=== PATIENT | male | born 1945 | race Caucasian/White ===

== ENCOUNTER 2019-11-17 21:52 | Inpatient (IN) | payer OTHER ==
[~2019-11-17 21:52] MED LIST: Iopamidol 370 76% 100 ML VIAL ONE
[2019-11-17] MEDS ORDERED: Propofol 1,000 MG/100 ML VIAL IV ONE (21:58)
[2019-11-17 22:24] LABS: Actual Bicarbonate (HCO3a) 26.4 mEq/L (22-28); Analyzer IN Cardio ER; Base Excess (BEa) -0.2 mEq/L (-2.0 to +3.0); CO2 Tension 50.2 mmHg (35.0-45.0); Calcium, Ionized (arterial) 1.06 mmol/L (1.12-1.30); Carboxyhemoglobin (COHb) 0.5 gm% (0.0-3.0); Hemoglobin (Hb) 15.4 g/dL (14.0-18.0); O2 Tension (PaO2), arterial 61.8 mmHg (> 70.0); Potassium - ABG Lab 3.41 mmol/L (3.70-5.30); pH, Arterial 7.34 (7.35-7.45)
[2019-11-17 22:26] LABS: Puncture Site LRA
[2019-11-17] MEDS ORDERED: Vancomycin 1 GM/200 ML BAG ONE (22:30)
[2019-11-17] MEDS ORDERED: Magnesium 2 GM/50 ML BAG (IN WATER) ONE (22:30)
[2019-11-17] MEDS ORDERED: Dexamethasone 10 MG/ML VIAL ONE (22:30)
[2019-11-17 22:42] LABS: Bilirubin Negative (Negative); Blood, Urine 1+ (Negative); Clarity Clear (Clear); Glucose, Urine (Dipstick) Normal (Negative); Leukocyte Negative Leu/uL (Negative); Nitrite Negative (Negative); Protein, Urine (Dipstick) 100 mg/dL (Neg-Trace); RBC/HPF 0-3 HPF (0-3); Squamous Epithelial 0-3 HPF (0-3); Urobilinogen Normal mg/dL (Less than 2)
[2019-11-17 22:49] LABS: Bacteria/HPF Rare-Few HPF (None Seen); Mucous/LPF 1+ LPF (<2+)
[2019-11-17 22:59] LABS: #Lymphocytes 0.7 thou/uL (1.20-3.40); #Neutrophils 9.8 thou/uL (1.40-6.50); %Eosinophils 0.3 % (0.0-10.0); %Lymphocytes 6.3 % (21.0-51.0); %Monocytes 8.8 % (0.0-10.0); %Neutrophils 84.6 % (42.0-75.0); Hemoglobin 14.5 g/dL (14.0-18.0); Mean Corpuscular HGB CONC 32.2 g/dL (32.0-36.0); Mean Corpuscular Hemoglobin 27.7 pg (27.0-31.0); Mean Corpuscular Volume 85.8 fL (78.0-98.0); Mean Platelet Volume 9.9 fL (7.4-10.4); Platelet Count 159 thou/uL (130-400); RBC Distribution Width 13.9 % (11.5-14.5); Red Blood Cell (RBC) Count 5.25 mill/uL (4.70-6.10); White Blood Cell (WBC) Count 11.6 thou/uL (4.8-10.8)
--- NOTE | 2019-11-17 23:13 | PDOC.HHP ---
Hospitalist HPI - History of Present Illness Respiratory failure/possible COVID19 History of Present Illness: Patient with PMH of HTN, HLD, DM, CHF, COPD from [facility] presents for evaluation of respiratory failure. At time of my assessment patient is intubated and sedated, unable to provide any history. Per discussion with ED provider patient was intubated prior to ED arrival by EMT due to respiratory distress. It it documented that patient had been having symptoms concerning for COVID19 x 2 weeks including SOB and fever with high risk exposure due to being incarcerated. Initial ED evaluation reveals intubated male with CT scan suggestive of bilateral infiltrates concerning for PNA/possible COVID19. Hospitalist ROS - Review of Systems ROS unobtainable: due to endotracheal tube - Exam General - other findings: Intubated/sedated Neck: supple, no JVD Heart: RRR, no murmur Respiratory: normal chest expansion Respiratory - other findings: Bilateral diffuse rhonchi, decreased bs at bases Gastrointestinal: soft, non-distended Extremities: no cyanosis, no clubbing, no edema Neurological - other findings: Sedated Psychiatric - other findings: Sedated Hospitalist Results - Labs Result Diagrams: 11/17/19 22:45 11/17/19 23:18 Lab results: WBC 11.6 thou/uL (4.8-10.8) H 11/17/19 22:45 Hgb 14.5 g/dL (14.0-18.0) 11/17/19 22:45 Hct 45.1 % (42.0-52.0) 11/17/19 22:45 MCV 85.8 fL (78.0-98.0) 11/17/19 22:45 Plt Count 159 thou/uL (130-400) 11/17/19 22:45 Neutrophils % 84.6 % (42.0-75.0) H 11/17/19 22:45 ABG pH 7.34 (7.35-7.45) L 11/17/19 22:20 ABG pCO2 50.2 mmHg (35.0-45.0) H 11/17/19 22:20 ABG pO2 61.8 mmHg (> 70.0) 11/17/19 22:20 Urine Ketones 40 mg/dL (Negative) A 11/17/19 22:27 Urine Blood 1+ (Negative) A 11/17/19 22:27 Urine Nitrite Negative (Negative) 11/17/19 22:27 Ur Leukocyte Esterase Negative Jess/uL (Negative) 11/17/19 22:27 Urine RBC 0-3 HPF (0-3) 11/17/19 22:27 Urine WBC 4-6 HPF (0-3) A 11/17/19 22:27 Ur Squamous Epith Cells 0-3 HPF (0-3) 11/17/19 22:27 Urine Bacteria Rare-Few HPF (None Seen) 11/17/19 22:27 - Radiology Interpretation CT scan - chest Status: image reviewed by ri Hospitalist H&P A/P - Plan Plan: Problem List 1. Hypoxic respiratory failure requiring mechanical ventilation 2. Multifocal pneumonia likely due to COVID19 3. COPD exacerbation 4. Sepsis 5. History of CHF 6. History of HTN 7. History of DM 8. History of DLD 9. Seizure disorder Assessment and Plan 1. Hypoxic respiratory failure requiring mechanical ventilation - admit to ICU for closer monitoring - continue with sedation & mechanical ventilation - repeat ABG in AM and chest imaging PRN - pulmonary cc has been consulted 2. Multifocal pneumonia likely due to COVID19 - per EHR recently tested negative - will repeat test given progressive decompensation - start broad spectrum ABX - consider remdesivir if COVID19 positive - ID has been consulted for further advice 3. COPD exacerbation - continue with IV steroids and broad spectrum ABX - pulmonary cc has been consulted 4. Sepsis - in setting of PNA possibly COVID19 related 5. History of CHF - hold diuretics for now - daily weight, strict I&Os 6. History of HTN - hold antihypertensives and diuretics for now due to risk of decompensation 7. History of DM - hold oral hypoglycemics - start ISS per protocol 8. History of DLD - hold statin for now 9. Seizure disorder - unclear if history of seizures bur carbamazepine listed as home med - will reassess once medications investigated by pharmacy in AM DVT PPX: Lovenox FULL CODE
--- NOTE | 2019-11-17 23:25 | RAD ---
EXAM: CHEST ONE VIEW HISTORY: Dyspnea. COMPARISON: None FINDINGS: Patient is rotated to the right. Cardiac silhouette does appear to be within normal limits. There is increased density overlying the right hilar region which could be related to patient rotation, but overlying infiltrate/pneumonia is a possibility. There is mild increased interstitial densities also seen bilaterally. No pleural fluid is appreciated. Degenerative changes are seen in the spine. IMPRESSION: Increased density overlying the right hilar region which could be related to superimposition of struc tures and secondary to patient rotation, but pneumonia is a possibility. This also mild prominence of the interstitial markings. Follow-up PA and lateral chest x-ray is recommended.
[2019-11-17] MEDS ORDERED: Aspirin Chewable 81 MG TAB ONE (23:31)
[2019-11-17 23:37] LABS: CKMB 0.5 ng/mL (0-6.6)
[2019-11-17 23:49] LABS: ALT (SGPT) 12 U/L (8-55); AST (SGOT) 26 U/L (5-34); Albumin 3.3 g/dL (3.4-4.8); Alkaline Phosphatase 57 U/L (40-110); Anion Gap 17 mmol/L (10-20); BUN (Urea Nitrogen) 12 mg/dL (8.4-25.7); Bilirubin, Total 0.6 mg/dL (0.2-1.2); CK (CPK) 100 U/L (30-200); Calc. Creatinine Clearance 0 mL/min (70-130); Calcium 7.8 mg/dL (7.8-10.44); Carbon Dioxide 22 mmol/L (23-31); Chloride 97 mmol/L (98-107); Estimated GFR-MDRD 90; Globulin 3.2 g/dL (2.4-3.5); Glucose 127 mg/dL (83-110); Lipase 26 U/L (8-78); Potassium 3.4 mmol/L (3.5-5.1); Protein, Total 6.5 g/dL (5.8-8.1); Sodium 133 mmol/L (136-145)
[2019-11-18] MEDS ORDERED: Propofol 1,000 MG/100 ML VIAL IV ONE (00:14)
[2019-11-18] MEDS ORDERED: Propofol BOLUS 1,000 MG/100 ML VIAL IV PRN (00:46)
[2019-11-18] MEDS ORDERED: Fentanyl BOLUS 250 ML IVPB PRN (00:46)
[2019-11-18] MEDS ORDERED: DISCONTINUE PREVIOUS NARCOTIC PAIN MEDICATIONS AND BENZODIAZEPINES FS SCH (00:46)
[2019-11-18] MEDS ORDERED: Ondansetron ODT 4 MG TAB SL PRN (00:47)
[2019-11-18] MEDS ORDERED: Ondansetron PF 4 MG/2 ML Vial IVP PRN ×2 (00:47→00:48)
[2019-11-18] MEDS ORDERED: Sodium Chloride 0.9% 1,000 ML IV SCH (00:47)
[2019-11-18] MEDS: fentaNYL Citrate/PF 2,000 MCG in Sodium Chloride 0.9% 60 ML IV SCH ×2 (01:27→21:54)
[2019-11-18] MEDS ORDERED: Dextrose 5% in Water 1,000 ML IV PRN (02:50)
[2019-11-18] MEDS ORDERED: Dextrose 50% Abboject 50 ML SYRINGE SLOW IVP PRN (02:50)
[2019-11-18] MEDS: Propofol 1,000 MG/100 ML VIAL IV PRN ×4 (03:41→21:46)
[2019-11-18 04:14] LABS: Band 14 % (5-11); Hemoglobin 15.7 g/dL (14.0-18.0); Lymphocytes 6 % (21-51); MDiff Complete? YES; Mean Corpuscular HGB CONC 32.6 g/dL (32.0-36.0); Mean Corpuscular Hemoglobin 28.5 pg (27.0-31.0); Mean Corpuscular Volume 87.3 fL (78.0-98.0); Mean Platelet Volume 9.3 fL (7.4-10.4); Metamyelocyte 1 % (0-0); Monocytes 10 % (0-10); Neutrophil 69 % (42-75); Platelet Count 136 thou/uL (130-400); Platelet Morphology Comment Appears Adequate; RBC Distribution Width 14.1 % (11.5-14.5); RBC Morphology Normal; Red Blood Cell (RBC) Count 5.52 mill/uL (4.70-6.10); White Blood Cell (WBC) Count 14.2 thou/uL (4.8-10.8)
[2019-11-18 04:17] LABS: ALT (SGPT) 13 U/L (8-55); AST (SGOT) 27 U/L (5-34); Albumin 3.4 g/dL (3.4-4.8); Alkaline Phosphatase 59 U/L (40-110); Anion Gap 17 mmol/L (10-20); BUN (Urea Nitrogen) 13 mg/dL (8.4-25.7); Bilirubin, Total 0.7 mg/dL (0.2-1.2); Calc. Creatinine Clearance 102 mL/min (70-130); Carbon Dioxide 22 mmol/L (23-31); Chloride 96 mmol/L (98-107); Estimated GFR-MDRD 75; Globulin 3.6 g/dL (2.4-3.5); Glucose 148 mg/dL (83-110); Sodium 131 mmol/L (136-145)
[2019-11-18] MEDS ORDERED: Piperacillin/Tazobactam 4.5 GM in Sodium Chloride 0.9% 100 ML IVPB SCH (06:00)
[2019-11-18] MEDS: methylPREDNISolone Sod Succ 40 MG VIAL IVP SCH ×3 (07:01→21:47)
[2019-11-18 07:12] LABS: Actual Bicarbonate (HCO3a) 24.6 mEq/L (22-28); Base Excess (BEa) 0.5 mEq/L (-2.0 to +3.0); CO2 Tension 37.8 mmHg (35.0-45.0); Calcium, Ionized (arterial) 1.07 mmol/L (1.12-1.30); Carboxyhemoglobin (COHb) 0.7 gm% (0.0-3.0); Hemoglobin (Hb) 13.7 g/dL (14.0-18.0); Potassium - ABG Lab 3.65 mmol/L (3.70-5.30); pH, Arterial 7.43 (7.35-7.45)
[2019-11-18 07:17] LABS: O2 Tension (PaO2), arterial 45.9 mmHg (> 70.0); Puncture Site RRA
--- NOTE | 2019-11-18 07:34 | CT ---
PRELIMINARY REPORT/[facility]/EMERGENCY AFTER HOURS PROCEDURE EXAM: CTA Chest with Intravenous Contrast CLINICAL HISTORY: Pt has had SOB and cough for an estimated 2 weeks per EMS. 2 weeks ago pt was swabbed for COVID and w as negative. Pt became increasingly SOB tonight, and was febrile at the PAC unit TECHNIQUE: Axial CTA images of the chest with intravenous contrast. Three-dimensional MIP/volume rendered reform ations were performed. CONTRAST: With; ISOVUE 370, 90ML COMPARISON: None provided. FINDINGS: PULMONARY ARTERIES There is no intraluminal filling defect suspicious for PE. AORTA No thoracic aortic aneurysm or dissection. Atherosclerosis. LUNGS An endotracheal tube is in place. Patchy groundglass densities throughout the lungs, worse in the nelida ng periphery. There is confluent sublobar consolidation in the bilateral lower lobes. PLEURAL SPACES No pleural effusion. No pneumothorax. HEART AND MEDIASTINUM Mild cardiomegaly. No significant pericardial effusion. The tip of the nasogastric tube is in the st omach. LYMPH NODES Prominent prevascular, subcarinal, paratracheal lymph nodes measuring up to 1.1 cm in short axis. BONES No focal osseous abnormality or acute fracture. Multilevel degenerative disc disease. CHEST WALL AND UPPER ABDOMEN Hepatomegaly. The other upper abdomen are unremarkable. The chest wall is unremarkable. IMPRESSION: Patchy groundglass densities throughout the lungs, worse in the lung periphery with confluent subloba r consolidation in the bilateral lower lobes. These findings are concerning for an infectious process and may represent a COVID-19 infection in the appropriate clinical setting. Mild cardiomegaly. Nonspecific mild mediastinal lymphadenopathy. ELECTRONICALLY SIGNED BY: Quique Kearns MD Nov 18, 2019 12:51:12 AM CDT This report is intended for review by the ordering physician only, in accordance of law. If you recei ve this report in error, please call [facility] at [phone]. FINAL REPORT Exam: CT angiogram of the chest HISTORY: Cough. Shortness of breath. COMPARISON: None TECHNIQUE: CT angiogram of the chest is performed in the axial plane. Three-dimensional reformatted i mages are submitted for interpretation FINDINGS: Mediastinum: No mass, lymphadenopathy or hematoma. Upper normal prevascular lymph nodes are identifie d. HEART: Normal size. No significant pericardial fluid. Aorta: No aneurysm or dissection Upper solid abdominal viscera: No abnormality enhancement. Trachea and central bronchi: Patent Pleural spaces: No effusion Lung parenchyma: Bibasilar consolidation may represent atelectasis, pneumonia or aspiration. Addition al patchy groundglass opacities are noted and have a predominantly peripheral distribution. Correlate for atypical infection. Patient was reported to be COVID-negative 2 weeks ago. Pneumothorax: None Osseous structures: No lytic or blastic lesions Pulmonary arteries: Limited evaluation pulmonary nodules system due to timing of contrast bolus and p atient motion. Adequate contrast opacification of the pulmonary arterial system to the level of the lobar arteries. No filling defect to suggest pulmonary embolism IMPRESSION: 1. This report is in agreement with initial report by [facility]. 2. Lung parenchymal opacifications as described above. Possibility of atypical infection, including C OVID, cannot be excluded. Patient was reported to be COVID-negative 2 weeks ago. Consider repeat testing. 3. No evidence of pulmonary artery embolism to the level of the lobar arteries. Transcribed Date/Time: 11/18/2019 8:29 AM
[2019-11-18] MEDS ORDERED: Azithromycin 500 MG in Sodium Chloride 0.9% 250 ML 250 ML IVPB SCH (09:00)
[2019-11-18] MEDS ORDERED: Vancomycin 1.5 GRAM/300 ML BAG 1.5 GM in Premix Bag 1 BAG IVPB SCH (09:00)
[2019-11-18] MEDS ORDERED: Enoxaparin Sodium 40 MG/0.4 ML SYRINGE SC SCH (09:00)
[2019-11-18] MEDS ORDERED: Famotidine/PF 20 mg/2ml Vial SLOW IVP SCH (09:00)
[2019-11-18] MEDS: Cefepime 1 GM in Sodium Chloride 0.9% 100 ML IVPB SCH ×2 (09:14→21:46)
[2019-11-18] MEDS: Enoxaparin Sodium 40 MG/0.4 ML SYRINGE SC SCH ×2 (09:14→21:47)
[2019-11-18] MEDS: Azithromycin 500 MG in Sodium Chloride 0.9% 250 ML 250 ML IVPB SCH (09:18)
--- NOTE | 2019-11-18 15:31 | CON ---
DATE OF CONSULTATION: 11/18/2019 HISTORY OF PRESENT ILLNESS: Ramin Matias is a 73-year-old gentleman, who was intubated from the correction system with respiratory distress. History is entirely obtained from his medical records since he is in the ICU, intubated, vented, sedated, and paralyzed. He has a diagnosis of COPD, apparently had respiratory distress, for which he was intubated. Several days prior to that, he had a coronavirus test done, which was negative, but his x-ray does show diffuse pulmonary infiltrates. PAST MEDICAL HISTORY: Pertinent for hypertension, COPD, congestive heart failure, and diabetes. HOME MEDICATIONS: Include: 1. Amlodipine 5. 2. Aspirin 81. 3. Lasix 40 b.i.d. 4. Lisinopril 20. 5. Metformin 1000. 6. Metoprolol 25. 7. Omeprazole. 8. Potassium. 9. Atorvastatin 10. 10. Carbamazepine 200 mg. 11. Terazosin 2. 12. ProAir. PREVIOUS SURGERIES: From the correction system, no records to assess. We will try and get additional medical records. PROBLEM LIST: Includes hypertension, COPD, hearing loss, heart failure, and diabetes. ALLERGIES: HE MAY BE ALLERGIC TO MORPHINE. PHYSICAL EXAMINATION: GENERAL: He is intubated on the vent, sedated as noted. VITAL SIGNS: Pulse 71, sats 90%, 60% FiO2, temperature 100.9, and respiratory rate 18. CHEST: Bilateral rhonchi and crackles. CARDIAC: Normal S1, S2. No gallops. ABDOMEN: Soft. LABORATORY DATA: White count 14,000, H and H 15 and 48, platelet count 136. PO2 is 45, pCO2 37, pH 7.43, 60%, BNP 20, sodium 131. ASSESSMENT: 1. Abnormal chest x-ray; respiratory failure; rule out coronavirus pneumonia, baseline. 2. Chronic obstructive pulmonary disease. 3. Congestive heart failure. 4. Hypertension. 5. Diabetes. PLAN: Continue vent support. Await additional information. If he is positive for the virus, he will receive plasma and Remdesivir including steroids. CRITICAL CARE TIME: 45 minutes. Job ID: [id number]
[2019-11-18] MEDS: Sodium Chloride 0.9% 1,000 ML IV SCH (17:16)
--- NOTE | 2019-11-18 17:53 | PDOC.HOSPP ---
- Subjective Encounter Date: 11/18/19 Encounter Time: 17:51 Subjective: pt intubated - Objective Vital Signs & Weight: Vital Signs (12 hours) Pulse Resp Pulse Ox 11/18/19 16:00 16 11/18/19 14:50 58 L 11/18/19 14:00 16 11/18/19 12:40 59 L 11/18/19 12:00 16 11/18/19 10:06 65 11/18/19 10:00 16 11/18/19 08:00 16 11/18/19 07:55 89 L 11/18/19 07:19 70 11/18/19 06:00 18 Weight Admit Weight 242 lb Weight 242 lb 8.136 oz Most Recent Monitor Data Heart Rate from ECG 65 NIBP 107/67 NIBP BP-Mean 80 Respiration from ECG 19 SpO2 94 I&O: 11/17/19 11/18/19 11/19/19 06:59 06:59 06:59 Intake Total 658 1207 Output Total 510 600 Balance 148 607 Result Diagrams: 11/18/19 03:39 11/18/19 03:39 Additional Labs: Accuchecks 11/18/19 11/18/19 16:16 12:02 POC Glucose 163 H 165 H Hospitalist ROS - Review of Systems Other: unable to obtain - Medication Medications: Active Medications Generic Name Dose Route Start Last Admin Trade Name Freq PRN Reason Stop Dose Admin Albuterol/Ipratropium 3 ml 11/18/19 13:00 11/18/19 12:46 Duoneb NEB 3 ml [id number] EDDIE Administration Enoxaparin Sodium 40 mg 11/18/19 09:00 11/18/19 09:14 Lovenox SC 40 mg BID EDDIE Administration Fentanyl Citrate 2,000 mcg/ 100 mls @ 0 mls/hr 11/18/19 00:46 11/18/19 01:27 Sodium Chloride IV 12/18/19 00:46 100 mls INF EDDIE Administration Protocol Per Protocol Cefepime HCl 1 gm/ Sodium 100 mls @ 200 mls/hr 11/18/19 09:00 11/18/19 09:14 Chloride IVPB 100 mls 0900,2100 EDDIE Administration Azithromycin 500 mg/ Sodium 250 mls @ 250 mls/hr 11/18/19 10:00 11/18/19 09: 18 Chloride IVPB 250 mls 1000 EDDIE Administration Sodium Chloride 1,000 mls @ 100 mls/hr 11/18/19 15:45 11/18/19 17:16 Normal Saline 0.9% IV 1,000 mls .Q10H EDDIE Administration Methylprednisolone Sodium Succinate 40 mg 11/18/19 06:00 11/18/19 13:38 Solu-Medrol IVP 40 mg Q8HR EDDIE Administration Propofol 1,000 mg 11/18/19 00:46 11/18/19 13:38 Diprivan IV 12/18/19 00:46 1,000 mg INF PRN Administration TO ACHIEVE GOAL RASS Protocol Sodium Chloride 10 ml 11/18/19 09:00 11/18/19 09:14 Flush - Normal Saline IVF 10 ml Q12HR EDDIE Administration - Exam Neck: negative: supple, symmetric, no JVD, no thyromegaly, no lymphadenopathy, no carotid bruit, JVD Heart: irregular Respiratory: negative: CTAB, no wheezes, no rales, no ronchi, normal chest expansion, no tachypnea, normal percussion, rales, rhonchi, tachypneic, wheezes Gastrointestinal: negative: soft, non-tender, non-distended, normal bowel sounds , no palpable masses, no hepatomegaly, no splenomegaly, no bruit, no guarding, no rigidity, tender to palpation, distended, diminished bowl sounds, voluntary guarding Hosp A/P (1) Acute respiratory failure Code(s): J96.00 - ACUTE RESPIRATORY FAILURE, UNSP W HYPOXIA OR HYPERCAPNIA Status: Acute (2) Pneumonia Code(s): J18.9 - PNEUMONIA, UNSPECIFIED ORGANISM Status: Acute (3) Afib Code(s): I48.91 - UNSPECIFIED ATRIAL FIBRILLATION Status: Acute (4) HTN (hypertension) Code(s): I10 - ESSENTIAL (PRIMARY) HYPERTENSION Status: Acute - Plan unclear why pt takes carbamazepine. pt now is afib rate controlled and is on lovenox. covid pending. will continue abx. pt sedated and intubated. He is on steroids. will order echo.
[2019-11-18] MEDS ORDERED: Digoxin 0.5 MG/2 ML AMP SLOW IVP SCH (20:00)
[2019-11-18] MEDS ORDERED: Prevnar 13-Val Conj/PF 0.5 ML SYRINGE IM ONE (21:00)
[2019-11-18] MEDS: Atorvastatin Calcium 10 MG TAB PO SCH (21:50)
--- NOTE | 2019-11-19 00:43 | CON ---
DATE OF CONSULTATION: 11/18/2019 REASON FOR CONSULTATION: Possible COVID. HISTORY OF PRESENT ILLNESS: A 73-year-old with history of COPD, hypertension, CHF, and type 2 diabetes, who is an inmate at [facility] and developed respiratory distress, had to be intubated in the field and then air flighted to this hospital. He is in the ICU and is intubated with a bi-level, and COVID test is pending. Initial findings included BP 190/108, pulse 117, respirations 20, O2 sats 92%, now 94% with FiO2 of 60 and a bi-level. The other findings initially included white cell count of 11.6, hemoglobin 14.5, platelets 159, 84% neutrophils. D-dimer and sodium 131, creatinine 0.97. Liver profile normal. Albumin 3.4. CRP 32, ferritin 769. Urinalysis with 4 to 6 wbc's. Cultures thus far no growth and the blood cultures and influenza test was negative and the COVID test is pending at this point in time. CT angiogram of chest with an ET tube and bibasilar consolidations, patchy ground-glass opacities noted, predominantly peripheral distribution. Of note, the patient had a negative COVID test 2 weeks before this admission. Currently, Mr. Matias is not responsive. He is sedated, does not move his extremities other than reflex upon stimulation of plantar aspect. PAST MEDICAL HISTORY: Includes COPD, hypertension, emphysema, CHF, type 2 diabetes. SOCIAL HISTORY: We do not have any social history other than he is in the [facility] half-way. ALLERGIES: MORPHINE. MEDICATIONS: Currently he is receiving; 1. Azithromycin. 2. Cefepime. 3. Enoxaparin. 4. Fentanyl. 5. Glucagon. 6. Medrol. I believe Dr. Marie has prescribed the plasma and tocilizumab if the COVID returns positive. PHYSICAL EXAMINATION: VITAL SIGNS: His temperature max 97.9, BP 107/67, pulse 65, O2 saturations are 94% on 60/bi-level. SKIN: With a few tattoos. He has a peripheral IV access, Graham catheter. His Is and Os are slightly positive, now negative. Indwelling Graham catheter. Urine output 500 and then 455 over the past 2 days respectively. No lymphadenopathy. GENERAL: He is kind of disheveled with a long jospeh. HEENT: His pupils are constricted. LUNGS: With coarse breath sounds. HEART: S1 and S2. Regular rate. ABDOMEN: Soft, somewhat scaphoid. No organomegaly or ascites. GENITAL: Normal. There is no joint inflammatory process. No edema. EXTREMITIES: Pulses 1+ in dorsalis pedis. NEUROLOGIC: Not feasible due to sedation. LABORATORY DATA: Urinalysis 4-6 WBCs, arterial pH 7.43, pCO2 of 37, pO2 is 45, O2 saturations were 84 that was earlier today. ASSESSMENT: History of chronic obstructive pulmonary disease, pulmonary infiltrates, negative COVID test 2 weeks ago from [facility], hypertension, and history of congestive heart failure. DISCUSSION: Diff diagn includes Covid pneumonia as the more likely scenario. Bacterial or Mycobacterial pneumonia less likely but not ruled out. Fungal pneumonia less likely. HIV reportedly not done yet. Aspiration, cardiogenic pulmonary edema less likely. Thromboembolism less likely. The patient will continue broad spectrum coverage. Awaiting on the COVID test results to pursue further interventions as ordered by Dr. Marie. He is already on corticosteroids. Job ID: [id number] [facility]
[2019-11-19] MEDS: HumaLOG 300 UNITS/3 ML VIAL SC PRN ×5 (01:38→23:41)
[2019-11-19] MEDS: Sodium Chloride 0.9% 1,000 ML IV SCH ×2 (01:41→10:03)
[2019-11-19] MEDS: Propofol 1,000 MG/100 ML VIAL IV PRN ×4 (03:51→19:44)
[2019-11-19 04:12] LABS: #Lymphocytes 0.4 thou/uL (1.20-3.40); #Monocytes 0.6 thou/uL (0.11-0.59); %Eosinophils 0.1 % (0.0-10.0); %Lymphocytes 3.5 % (21.0-51.0); %Neutrophils 91.5 % (42.0-75.0); Mean Corpuscular HGB CONC 31.7 g/dL (32.0-36.0); Mean Corpuscular Hemoglobin 27.2 pg (27.0-31.0); Mean Corpuscular Volume 85.8 fL (78.0-98.0); Mean Platelet Volume 10.3 fL (7.4-10.4); Platelet Count 176 thou/uL (130-400); RBC Distribution Width 14.2 % (11.5-14.5); Red Blood Cell (RBC) Count 4.79 mill/uL (4.70-6.10)
[2019-11-19 04:22] LABS: Anion Gap 15 mmol/L (10-20); BUN (Urea Nitrogen) 23 mg/dL (8.4-25.7); Calc. Creatinine Clearance 121 mL/min (70-130); Calcium 8.1 mg/dL (7.8-10.44); Carbon Dioxide 23 mmol/L (23-31); Chloride 100 mmol/L (98-107); Estimated GFR-MDRD Greater than 90; Glucose 167 mg/dL (83-110); Potassium 3.8 mmol/L (3.5-5.1); Sodium 134 mmol/L (136-145)
[2019-11-19] MEDS: methylPREDNISolone Sod Succ 40 MG VIAL IVP SCH ×3 (06:34→22:59)
[2019-11-19] MEDS ORDERED: Sodium Chloride 0.9% (PF) 10 ML VIAL FS PRN (06:50)
[2019-11-19 07:07] LABS: Base Excess (BEa) -3.2 mEq/L (-2.0 to +3.0); CO2 Tension 34.8 mmHg (35.0-45.0); Calcium, Ionized (arterial) 1.12 mmol/L (1.12-1.30); Carboxyhemoglobin (COHb) 0.7 gm% (0.0-3.0); Hemoglobin (Hb) 13.3 g/dL (14.0-18.0); O2 Tension (PaO2), arterial 62.9 mmHg (> 70.0); Potassium - ABG Lab 3.92 mmol/L (3.70-5.30)
[2019-11-19 07:09] LABS: Puncture Site RRA
[2019-11-19] MEDS: Aspirin 81 mg Enteric Coated Tablet PO SCH (07:53)
[2019-11-19] MEDS: Enoxaparin Sodium 40 MG/0.4 ML SYRINGE SC SCH (07:53)
[2019-11-19] MEDS: Cefepime 1 GM in Sodium Chloride 0.9% 100 ML IVPB SCH ×2 (07:53→20:31)
[2019-11-19] MEDS: Pantoprazole 40 MG VIAL IVP SCH (07:55)
--- NOTE | 2019-11-19 07:56 | RAD ---
EXAM: Single view of the chest HISTORY: Ventilated patient with respiratory failure COMPARISON: 11/17/2019 FINDINGS: Single view of the chest shows a normal sized cardiomediastinal silhouette. Lines and tube s are unchanged in position. Diffuse increased interstitial markings are present. There appear to be superimposed multifocal airspace opacities scattered throughout the lungs. Degenerative changes ar e seen in the spine. IMPRESSION: Stable exam
[2019-11-19] MEDS: Acetaminophen 500 MG TAB PO PRN ×3 (08:35→20:16)
[2019-11-19] MEDS: Azithromycin 500 MG in Sodium Chloride 0.9% 250 ML 250 ML IVPB SCH (09:56)
[2019-11-19] MEDS ORDERED: Enoxaparin Sodium 80 MG/0.8 ML SYRINGE SC SCH (10:15)
--- NOTE | 2019-11-19 15:46 | PQF ---
CLINICAL DOCUMENTATION IMPROVEMENT CLARIFICATION FORM: ICD-10 Updated PLEASE DO AN ADDENDUM TO THE PROGRESS NOTE WITH ANY DOCUMENTATION UPDATES OR ADDITIONS AND CARRY THROUGH TO DC SUMMARY. THANK YOU. DATE: 11/19/19 ATTN: DR. BROWNLEE Please exercise your independent, professional judgment in responding to the clarification form. Clinical indicators are provided on the bottom of this form for your review Please check appropriate box(s) to clarify if the following diagnosis has been ruled in or ruled out: SEPSIS [ ] Ruled in diagnosis [ x] Continue to treat [ ] Resolved [ ] Ruled out diagnosis [ ] Improving [ ] Cannot rule out diagnosis [ ] Other diagnosis [ ] Unable to determine In addition, please specify: Present on Admission (POA): [ x ] Yes [ ] No [ ] Unable to determine For continuity of documentation, please document condition throughout progress notes and discharge summary. Thank You. CLINICAL INDICATORS - SIGNS / SYMPTOMS / LABS / RESULTS AND LOCATION IN MR H&P: "SEPSIS" PULSE 117 CRITICORE TEMP 102.6 WBC 11/16: 11.6 11/17: 14.2 BANDS 11/17: 14 CPR 11/17: 14 RISKS: INMATE WITH CORONAVIRUS EXPOSURE (ER NOTE) CT SCAN CONCERNING FOR PNEUMONIA (H&P) TREATMENT: IV VANCOMYCIN (ER) IV LEVAQUIN (ER) IV CEFEPIME (11/17-PRESENT) IV ZITHROMAX (11/17-PRESENT) INTUBATION ID CONSULT BLOOD CULTURES 11/16 COVID TESTING 11/16 (This form is maintained as a part of the permanent medical record) 2014 [employer]. All Rights Reserved MYLA [email or web address] [facility]
--- NOTE | 2019-11-19 17:57 | PRG ---
DATE OF SERVICE: 11/19/2019 SUBJECTIVE: Ramin Matias remains intubated in the vent in the ICU. OBJECTIVE: VITAL SIGNS: His pulse was 68, temperature 101.5, sats 97%. I's and O's have been consistently ahead. CHEST: Bilateral rhonchi and crackles. CARDIAC: Normal S1 and S2. No masses. NEUROLOGIC: Sedated. LABORATORY DATA: White count 12,000. His PO2 is 62, pCO2 is 34, on 60%, and PEEP of 13. Lytes are normal. Sodium 134, glucose 167. X-ray still shows bilateral infiltrates. Awaiting results of his coronavirus. PLAN: I will continue Zithromax, Maxipime, and steroids. Start nutrition. If test is positive, he will be given convalescent plasma. CRITICAL CARE TIME: One-half hour. Job ID: [id number]
[2019-11-19] MEDS: Lorazepam 2 MG/ML VIAL SLOW IVP PRN (19:00)
--- NOTE | 2019-11-19 19:24 | EKG ---
Test Reason : Blood Pressure : / mmHG Vent. Rate : 080 BPM Atrial Rate : 078 BPM P-R Int : 000 ms QRS Dur : 082 ms QT Int : 374 ms P-R-T Axes : 000 -25 040 degrees QTc Int : 431 ms Atrial fibrillation Nonspecific ST abnormality very poor quality from interference artifacts Abnormal ECG When compared with ECG of 17-NOV-2019 22:07, (Unconfirmed) Atrial fibrillation has replaced Sinus rhythm Non-specific change in ST segment in Inferior leads ST elevation now present in Lateral leads Confirmed by DR. Imtiaz NEFF (3) on 11/19/2019 7:24:25 PM Referred By: KEM Confirmed By:DR. Imtiaz NEFF
[2019-11-19] MEDS: Enoxaparin Sodium 120 MG/0.8 ML SYRINGE SC SCH (20:32)
[2019-11-19] MEDS: Atorvastatin Calcium 10 MG TAB PO SCH (21:03)
[2019-11-19] MEDS: fentaNYL Citrate/PF 2,000 MCG in Sodium Chloride 0.9% 60 ML IV SCH (22:59)
[2019-11-20] MEDS: Propofol 1,000 MG/100 ML VIAL IV PRN ×5 (00:54→23:23)
[2019-11-20] MEDS: Sodium Chloride 0.9% 1,000 ML IV SCH ×2 (01:55→15:04)
[2019-11-20] MEDS: HumaLOG 300 UNITS/3 ML VIAL SC PRN ×5 (04:17→20:10)
[2019-11-20 04:39] LABS: Anion Gap 13 mmol/L (10-20); BUN (Urea Nitrogen) 20 mg/dL (8.4-25.7); Calc. Creatinine Clearance 130 mL/min (70-130); Calcium 7.7 mg/dL (7.8-10.44); Carbon Dioxide 23 mmol/L (23-31); Chloride 105 mmol/L (98-107); Estimated GFR-MDRD Greater than 90; Glucose 187 mg/dL (83-110); Sodium 137 mmol/L (136-145)
[2019-11-20 04:40] LABS: Band 3 % (5-11); Hemoglobin 12.8 g/dL (14.0-18.0); Hypochromia SLIGHT = 6-15 cells (100X) (0-5/hpf); Lymphocytes 1 % (21-51); MDiff Complete? YES; Mean Corpuscular HGB CONC 32.1 g/dL (32.0-36.0); Mean Corpuscular Hemoglobin 27.6 pg (27.0-31.0); Mean Corpuscular Volume 85.9 fL (78.0-98.0); Mean Platelet Volume 10.9 fL (7.4-10.4); Neutrophil 96 % (42-75); Platelet Count 202 thou/uL (130-400); Platelet Morphology Comment Appears Adequate; RBC Distribution Width 14.3 % (11.5-14.5); Red Blood Cell (RBC) Count 4.64 mill/uL (4.70-6.10); White Blood Cell (WBC) Count 11.9 thou/uL (4.8-10.8)
[2019-11-20] MEDS: methylPREDNISolone Sod Succ 40 MG VIAL IVP SCH ×2 (05:51→20:13)
--- NOTE | 2019-11-20 07:47 | RAD ---
EXAM: Single view of the chest HISTORY: Ventilated patient with respiratory failure COMPARISON: 11/19/2019 FINDINGS: Single view of the chest shows a normal sized cardiomediastinal silhouette. Increased inte rstitial markings are present. The lines and tubes are unchanged in position. There may be superimposed multifocal infiltrates in the lungs. The bones are unremarkable. IMPRESSION: Stable exam
[2019-11-20] MEDS: Cefepime 1 GM in Sodium Chloride 0.9% 100 ML IVPB SCH ×2 (07:48→20:11)
[2019-11-20] MEDS: Pantoprazole 40 MG VIAL IVP SCH (07:50)
[2019-11-20] MEDS: Aspirin 81 mg Enteric Coated Tablet PO SCH (07:51)
[2019-11-20] MEDS: Enoxaparin Sodium 120 MG/0.8 ML SYRINGE SC SCH ×2 (07:52→20:13)
[2019-11-20] MEDS ORDERED: methylPREDNISolone Sod Succ 40 MG VIAL IVP SCH (09:00)
--- NOTE | 2019-11-20 09:03 | PRG ---
DATE OF SERVICE: 11/20/2019 SUBJECTIVE: A 73-year-old gentleman, remains in ICU, intubated in the vent, sedated. OBJECTIVE: VITAL SIGNS: His temperature 100.2, saturations are 98%, blood pressure 130/82, respiratory rate 19, 50%, and 11 of PEEP. CHEST: Decreased breath sounds. No wheezing or crackles. CARDIAC: Normal S1, S2. No gallops. ABDOMEN: No masses. LABORATORY DATA: White count 11,000, slight left shift, 96 segs, 3 bands. Lytes are normal. Glucose 175. X-ray still shows diffuse infiltrates. ASSESSMENT: Coronavirus positive, bilateral bronchopneumonia, respiratory failure. PLAN: We are going to initiate convalescent plasma today, is per the protocol. Continue steroids, Zithromax and cefepime. Nutritional support, PT. One-half hour of critical care time. Job ID: [id number]
[2019-11-20 09:26] LABS: Actual Bicarbonate (HCO3a) 23.6 mEq/L (22-28); Base Excess (BEa) -0.6 mEq/L (-2.0 to +3.0); CO2 Tension 37.6 mmHg (35.0-45.0); Calcium, Ionized (arterial) 1.11 mmol/L (1.12-1.30); Carboxyhemoglobin (COHb) 0.9 gm% (0.0-3.0); Hemoglobin (Hb) 14.4 g/dL (14.0-18.0); O2 Tension (PaO2), arterial 70.8 mmHg (> 70.0); Potassium - ABG Lab 3.96 mmol/L (3.70-5.30); pH, Arterial 7.42 (7.35-7.45)
[2019-11-20 09:33] LABS: Puncture Site LRA
[2019-11-20] MEDS ORDERED: Pancrelipase DR 12000 1 CAP FS PRN (09:45)
[2019-11-20] MEDS ORDERED: Sodium Bicarbonate Tab 325 MG TAB PER TUBE PRN (09:45)
[2019-11-20] MEDS: Azithromycin 500 MG in Sodium Chloride 0.9% 250 ML 250 ML IVPB SCH (10:25)
[2019-11-20] MEDS: Lorazepam 2 MG/ML VIAL SLOW IVP PRN (15:04)
[2019-11-20 17:02] VITALS: TEMP 98.8
[2019-11-20] MEDS: hydrALAZINE 20 MG/ML VIAL SLOW IVP PRN (18:15)
[2019-11-20] MEDS: Atorvastatin Calcium 10 MG TAB PO SCH (20:11)
[2019-11-21] MEDS: Sodium Chloride 0.9% 1,000 ML IV SCH (01:45)
[2019-11-21 02:41] VITALS: BP 139/113
[2019-11-21 04:45] LABS: Anion Gap 11 mmol/L (10-20); BUN (Urea Nitrogen) 19 mg/dL (8.4-25.7); Calc. Creatinine Clearance 147 mL/min (70-130); Calcium 7.6 mg/dL (7.8-10.44); Carbon Dioxide 24 mmol/L (23-31); Chloride 109 mmol/L (98-107); Estimated GFR-MDRD Greater than 90; Glucose 184 mg/dL (83-110); Potassium 3.9 mmol/L (3.5-5.1); Sodium 140 mmol/L (136-145)
[2019-11-21 04:53] LABS: Band 26 % (5-11); Lymphocytes 15 % (21-51); MDiff Complete? YES; Mean Corpuscular HGB CONC 32.7 g/dL (32.0-36.0); Mean Corpuscular Hemoglobin 28.2 pg (27.0-31.0); Mean Corpuscular Volume 86.1 fL (78.0-98.0); Mean Platelet Volume 11.2 fL (7.4-10.4); Monocytes 5 % (0-10); Neutrophil 54 % (42-75); Platelet Count 238 thou/uL (130-400); Platelet Morphology Comment Appears Adequate; RBC Distribution Width 14.5 % (11.5-14.5); Red Blood Cell (RBC) Count 4.61 mill/uL (4.70-6.10); White Blood Cell (WBC) Count 8.2 thou/uL (4.8-10.8)
[2019-11-21] MEDS: HumaLOG 300 UNITS/3 ML VIAL SC PRN ×3 (05:05→10:43)
[2019-11-21] MEDS: Propofol 1,000 MG/100 ML VIAL IV PRN ×3 (05:05→15:36)
[2019-11-21 07:27] LABS: Actual Bicarbonate (HCO3a) 22.9 mEq/L (22-28); Base Excess (BEa) -1.4 mEq/L (-2.0 to +3.0); CO2 Tension 37.2 mmHg (35.0-45.0); Calcium, Ionized (arterial) 1.12 mmol/L (1.12-1.30); Carboxyhemoglobin (COHb) 0.5 gm% (0.0-3.0); Hemoglobin (Hb) 12.5 g/dL (14.0-18.0); O2 Tension (PaO2), arterial 74.5 mmHg (> 70.0); pH, Arterial 7.41 (7.35-7.45)
--- NOTE | 2019-11-21 07:46 | PDOC.HOSPP ---
- Subjective Encounter Date: 11/19/19 Encounter Time: 10:30 Subjective: chart reviewed - Objective Vital Signs & Weight: Vital Signs (12 hours) Temp Pulse Resp BP Pulse Ox 11/21/19 06:00 16 11/21/19 04:00 16 11/21/19 02:35 89 139/113 H 11/21/19 02:00 16 11/21/19 01:00 98.8 F 11/21/19 00:10 68 16 100 11/21/19 00:00 16 97 11/20/19 22:27 74 141/93 H 11/20/19 22:00 16 11/20/19 20:00 16 Weight Admit Weight 242 lb Weight 249 lb 1.957 oz Most Recent Monitor Data Heart Rate from ECG 59 NIBP 143/94 NIBP BP-Mean 110 Respiration from ECG 13 SpO2 97 I&O: 11/20/19 11/21/19 11/22/19 06:59 06:59 06:59 Intake Total 2061 341 Output Total 7190729 1210 Balance -[id number] 2201 Result Diagrams: 11/21/19 03:30 11/21/19 03:30 Additional Labs: Accuchecks 11/21/19 11/20/19 11/20/19 03:44 23:33 19:01 POC Glucose 175 H 186 H 172 H 11/20/19 11/20/19 11/20/19 15:15 10:37 07:21 POC Glucose 172 H 177 H 175 H Hospitalist ROS - Review of Systems Other: pt not seen - Medication Medications: Active Medications Generic Name Dose Route Start Last Admin Trade Name Minhq PRN Reason Stop Dose Admin Acetaminophen 1,000 mg 11/19/19 10:27 11/19/19 20:16 Tylenol PO 1,000 mg Q6H PRN Administration Headache/Fever or Pain Albuterol/Ipratropium 3 ml 11/18/19 13:00 11/21/19 07:01 Duoneb NEB 3 ml [id number] EDDIE Administration Aspirin 81 mg 11/19/19 09:00 11/20/19 07:51 Ecotrin PO 81 mg DAILY EDDIE Administration Atorvastatin Calcium 10 mg 11/18/19 21:00 11/20/19 20:11 Lipitor PO 10 mg HS EDDIE Administration Enoxaparin Sodium 110 mg 11/19/19 21:00 11/20/19 20:13 Lovenox SC 110 mg 0900,2100 EDDIE Administration Hydralazine HCl 5 mg 11/20/19 17:40 11/20/19 18:15 Apresoline SLOW IVP 5 mg Q6H PRN Administration Blood Pressure SBP>170 Fentanyl Citrate 2,000 mcg/ 100 mls @ 0 mls/hr 11/18/19 00:46 11/19/19 22:59 Sodium Chloride IV 12/18/19 00:46 100 mls INF EDDIE Administration Protocol Per Protocol Cefepime HCl 1 gm/ Sodium 100 mls @ 200 mls/hr 11/18/19 09:00 11/20/19 20:11 Chloride IVPB 100 mls 0900,2100 EDDIE Administration Azithromycin 500 mg/ Sodium 250 mls @ 250 mls/hr 11/18/19 10:00 11/20/19 10: 25 Chloride IVPB 250 mls 1000 EDDIE Administration Sodium Chloride 1,000 mls @ 100 mls/hr 11/18/19 15:45 11/21/19 01:45 Normal Saline 0.9% IV 1,000 mls .Q10H EDDIE Administration Insulin Human Lispro 0 units 11/18/19 02:50 11/21/19 05:05 Humalog SC 2 unit .MILD SLIDING SCALE PRN Administration Mild Correctional Scale Lorazepam 2 mg 11/18/19 00:46 11/20/19 15:04 Ativan SLOW IVP 12/18/19 00:46 2 mg Q1H PRN Administration Breakthrough agitation Methylprednisolone Sodium Succinate 40 mg 11/20/19 21:00 11/20/19 20:13 Solu-Medrol IVP 40 mg BID EDDIE Administration Pantoprazole Sodium 40 mg 11/19/19 09:00 11/20/19 07:50 Protonix IVP 40 mg DAILY EDDIE Administration Propofol 1,000 mg 11/18/19 00:46 11/21/19 05:05 Diprivan IV 12/18/19 00:46 1,000 mg INF PRN Administration TO ACHIEVE GOAL RASS Protocol Sodium Chloride 10 ml 11/18/19 09:00 11/20/19 20:14 Flush - Normal Saline IVF 10 ml Q12HR EDDIE Administration Hosp A/P (1) Acute respiratory failure Code(s): J96.00 - ACUTE RESPIRATORY FAILURE, UNSP W HYPOXIA OR HYPERCAPNIA Status: Acute (2) Pneumonia Code(s): J18.9 - PNEUMONIA, UNSPECIFIED ORGANISM Status: Acute (3) Afib Code(s): I48.91 - UNSPECIFIED ATRIAL FIBRILLATION Status: Acute (4) HTN (hypertension) Code(s): I10 - ESSENTIAL (PRIMARY) HYPERTENSION Status: Acute - Plan unclear why pt takes carbamazepine. pt now is afib rate controlled and is on lovenox. covid pending. will continue abx. pt sedated and intubated. He is on steroids. will order echo. 11/18 pt not seen today and was seen by pulm. will continue abx for now. He is covid positive. He is already on solumedrol per pulm. will continue abx. Rate controlled will start full dose lovenox.
[2019-11-21] MEDS: Aspirin 81 mg Enteric Coated Tablet PO SCH (07:47)
[2019-11-21] MEDS: Enoxaparin Sodium 120 MG/0.8 ML SYRINGE SC SCH (07:47)
[2019-11-21] MEDS: methylPREDNISolone Sod Succ 40 MG VIAL IVP SCH (07:47)
[2019-11-21] MEDS: Cefepime 1 GM in Sodium Chloride 0.9% 100 ML IVPB SCH (07:48)
[2019-11-21] MEDS: Pantoprazole 40 MG VIAL IVP SCH (07:48)
--- NOTE | 2019-11-21 07:50 | PDOC.HOSPP ---
- Subjective Encounter Date: 11/20/19 Encounter Time: 17:00 Subjective: pt intubated - Objective Vital Signs & Weight: Vital Signs (12 hours) Temp Pulse Resp BP Pulse Ox 11/21/19 06:00 16 11/21/19 04:00 16 11/21/19 02:35 89 139/113 H 11/21/19 02:00 16 11/21/19 01:00 98.8 F 11/21/19 00:10 68 16 100 11/21/19 00:00 16 97 11/20/19 22:27 74 141/93 H 11/20/19 22:00 16 11/20/19 20:00 16 Weight Admit Weight 242 lb Weight 249 lb 1.957 oz Most Recent Monitor Data Heart Rate from ECG 64 NIBP 148/96 NIBP BP-Mean 113 Respiration from ECG 16 SpO2 98 I&O: 11/20/19 11/21/19 11/22/19 06:59 06:59 06:59 Intake Total 2061 3411 Output Total 7605599 1210 Balance -[id number] 2201 Result Diagrams: 11/21/19 03:30 11/21/19 03:30 Additional Labs: Accuchecks 11/21/19 11/20/19 11/20/19 03:44 23:33 19:01 POC Glucose 175 H 186 H 172 H 11/20/19 11/20/19 11/20/19 15:15 10:37 07:21 POC Glucose 172 H 177 H 175 H Hospitalist ROS - Review of Systems Other: pt intubated - Medication Medications: Active Medications Generic Name Dose Route Start Last Admin Trade Name Bradley PRN Reason Stop Dose Admin Acetaminophen 1,000 mg 11/19/19 10:27 11/19/19 20:16 Tylenol PO 1,000 mg Q6H PRN Administration Headache/Fever or Pain Albuterol/Ipratropium 3 ml 11/18/19 13:00 11/21/19 07:01 Duoneb NEB 3 ml [id number] EDDIE Administration Aspirin 81 mg 11/19/19 09:00 11/20/19 07:51 Ecotrin PO 81 mg DAILY EDDIE Administration Atorvastatin Calcium 10 mg 11/18/19 21:00 11/20/19 20:11 Lipitor PO 10 mg HS EDDIE Administration Enoxaparin Sodium 110 mg 11/19/19 21:00 11/20/19 20:13 Lovenox SC 110 mg 0900,2100 EDDIE Administration Hydralazine HCl 5 mg 11/20/19 17:40 11/20/19 18:15 Apresoline SLOW IVP 5 mg Q6H PRN Administration Blood Pressure SBP>170 Fentanyl Citrate 2,000 mcg/ 100 mls @ 0 mls/hr 11/18/19 00:46 11/19/19 22:59 Sodium Chloride IV 12/18/19 00:46 100 mls INF EDDIE Administration Protocol Per Protocol Cefepime HCl 1 gm/ Sodium 100 mls @ 200 mls/hr 11/18/19 09:00 11/20/19 20:11 Chloride IVPB 100 mls 899,2100 EDDIE Administration Azithromycin 500 mg/ Sodium 250 mls @ 250 mls/hr 11/18/19 10:00 11/20/19 10: 25 Chloride IVPB 250 mls 1000 EDDIE Administration Sodium Chloride 1,000 mls @ 100 mls/hr 11/18/19 15:45 11/21/19 01:45 Normal Saline 0.9% IV 1,000 mls .Q10H EDDIE Administration Insulin Human Lispro 0 units 11/18/19 02:50 11/21/19 05:05 Humalog SC 2 unit .MILD SLIDING SCALE PRN Administration Mild Correctional Scale Lorazepam 2 mg 11/18/19 00:46 11/20/19 15:04 Ativan SLOW IVP 12/18/19 00:46 2 mg Q1H PRN Administration Breakthrough agitation Methylprednisolone Sodium Succinate 40 mg 11/20/19 21:00 11/20/19 20:13 Solu-Medrol IVP 40 mg BID EDDIE Administration Pantoprazole Sodium 40 mg 11/19/19 09:00 11/20/19 07:50 Protonix IVP 40 mg DAILY EDDIE Administration Propofol 1,000 mg 11/18/19 00:46 11/21/19 05:05 Diprivan IV 12/18/19 00:46 1,000 mg INF PRN Administration TO ACHIEVE GOAL RASS Protocol Sodium Chloride 10 ml 11/18/19 09:00 11/20/19 20:14 Flush - Normal Saline IVF 10 ml Q12HR EDDIE Administration - Exam Heart: irregular Respiratory: rales Gastrointestinal: negative: soft, non-tender, non-distended, normal bowel sounds , no palpable masses, no hepatomegaly, no splenomegaly, no bruit, no guarding, no rigidity, tender to palpation, distended, diminished bowl sounds, voluntary guarding Extremities: 2+ LE edema Hosp A/P (1) Acute respiratory failure Code(s): J96.00 - ACUTE RESPIRATORY FAILURE, UNSP W HYPOXIA OR HYPERCAPNIA Status: Acute (2) Pneumonia Code(s): J18.9 - PNEUMONIA, UNSPECIFIED ORGANISM Status: Acute (3) Afib Code(s): I48.91 - UNSPECIFIED ATRIAL FIBRILLATION Status: Acute (4) HTN (hypertension) Code(s): I10 - ESSENTIAL (PRIMARY) HYPERTENSION Status: Acute (5) Sepsis Code(s): A41.9 - SEPSIS, UNSPECIFIED ORGANISM Status: Acute - Plan unclear why pt takes carbamazepine. pt now is afib rate controlled and is on lovenox. covid pending. will continue abx. pt sedated and intubated. He is on steroids. will order echo. 11/18 pt not seen today and was seen by pulm. will continue abx for now. He is covid positive. He is already on solumedrol per pulm. will continue abx. Rate controlled will start full dose lovenox. 11/19 pt started on plasma per pulm. will continue to trend. will put prn bp meds. pt on full dose lovonex
[2019-11-21 07:53] LABS: Puncture Site RRAD
--- NOTE | 2019-11-21 07:58 | RAD ---
XR Chest 1 View Portable History: Ventilated patient Comparison: Radiograph prior day Findings: Endotracheal tube tip at level of clavicles. Enteric tube tip not seen due to underpenetrat ion. The extensive interstitial markings throughout the lungs are similar. Bibasilar consolidation. Impression: Similar examination of the chest.
--- NOTE | 2019-11-21 09:15 | PRG ---
DATE OF SERVICE: 11/21/2019 SUBJECTIVE: He is intubated on the vent, still sedated. OBJECTIVE: VITAL SIGNS: Blood pressure 149/100; temperature is 98, though he still had a low-grade fever several days ago; respiratory rate 16; he is on 60% FiO2, low PEEP of 11. His I's and O's have been consistently negative. GENERAL: He is having loose stools now. CHEST: Bilateral crackles. CARDIAC: Normal S1 and S2. No gallops. LABORATORY DATA: PO2 of 74, pCO2 of . White count is normal. Lytes are normal. ASSESSMENT: Respiratory failure, coronavirus positive pneumonia, just started plasma yesterday along with presumed Remdesivir. Eventually placement. One-half hour of critical care time. Job ID: [id number]
[2019-11-21] MEDS: Azithromycin 500 MG in Sodium Chloride 0.9% 250 ML 250 ML IVPB SCH (09:41)
[2019-11-21] MEDS: Lorazepam 2 MG/ML VIAL SLOW IVP PRN ×3 (10:39→15:36)
[2019-11-21] MEDS: hydrALAZINE 20 MG/ML VIAL SLOW IVP PRN (10:58)
[2019-11-21 11:02] VITALS: BMI 38.9
--- NOTE | 2019-11-21 13:17 | DIS ---
DATE OF ADMISSION: 11/17/2019 DATE OF DISCHARGE: 11/21/2019 DISPOSITION: The patient is being transferred to [facility]. DISCHARGE DIAGNOSES: As of the followin. Sepsis. 2. Acute respiratory failure. 3. COVID positive pneumonia. 4. Fevers. 5. Atrial fibrillation, new onset. 6. Hypertension. HOSPITAL COURSE: The patient is a 73-year-old male, who is an inpatient, who initially came into the hospital on 11/16 with respiratory failure. Apparently, per the notes, the patient was intubated in the ED when he arrived by EMS. Apparently, there was a concern for possible COVID-19 exposure and symptoms for the past 2 weeks. He is currently in prison. The patient at this time had a CTA, which indicated bilateral infiltrates concerning for COVID. However, the CTA was negative for PE. At this time, the patient was seen by Infectious Disease and also by Pulmonary. The patient was started on convalescent plasma and was started on steroids. He was out of the window for remdesivir. This is per pharmacy. The patient also was found to be in atrial fibrillation, rate controlled. He was started on anticoagulation. He currently does wake up when sedation has been lowered. HOME MEDICATIONS: 1. Norvasc 5 mg daily. 2. Aspirin 81 once daily. 3. Atorvastatin 10 mg daily. 4. Lasix 40 mg twice a day. 5. Carbamazepine 200 mg at bedtime. 6. Lisinopril 40 mg daily. 7. Metoprolol 25 mg twice a day. 8. Metformin, which is currently on hold. PHYSICAL EXAMINATION: VITAL SIGNS: Temperature of 97.9, blood pressure 133/93, pulse 78, oxygen saturation 95%. GENERAL: The patient is intubated. CARDIOVASCULAR: Irregularly irregular, rate controlled. LUNGS: Rales to bilateral lower lung bases. ABDOMEN: Soft, nontender. Bowel sounds are present x2. EXTREMITIES: A +2 lower extremity edema. The patient again will be transferred to [facility]. MEDICATIONS ON DISCHARGE: As of the followin. He will be on antibiotics, cefepime and azithromycin. 2. He is on Lovenox mg twice a day. 3. Also, prednisone 40 mg twice a day. This is per Pulmonary. 4. Normal saline 100 mg an hour. 5. Atorvastatin 10 mg daily. 6. Aspirin 81 mg daily. Job ID: [id number]
--- NOTE | 2019-11-22 14:52 | EKG ---
Test Reason : Blood Pressure : / mmHG Vent. Rate : 115 BPM Atrial Rate : 115 BPM P-R Int : 200 ms QRS Dur : 092 ms QT Int : 314 ms P-R-T Axes : 094 -50 057 degrees QTc Int : 434 ms Sinus tachycardia Pulmonary disease pattern Left anterior fascicular block Abnormal ECG Confirmed by SOFYA COLLINS, BETINA ([id number]), copy editor NANCY SHIN ([id number]) on 11/22/2019 2:51:42 PM Referred By: Confirmed By:BETINA COWART MD
== END 2019-11-21 16:00 | DRG 871 ==
LOC: ERS 21:52 → EEVIPCON 21:52 → CCU 23:13
PROVIDERS: ADMIT Internal Medicine; ATTEND Internal Medicine
PROC: 5A1945Z Respiratory Ventilation, 24-96 Consecutive Hours (ICD-10-PCS; 2019-11-18)
PROC: 8E0ZXY6 Isolation (ICD-10-PCS; principal; 2019-11-20)
PROC: 30233K1 Transfusion of Nonautologous Frozen Plasma into Peripheral Vein, Percutaneous Approach (ICD-10-PCS; 2019-11-20)
DX: A41.89 Other specified sepsis (principal); U07.1 COVID-19; J96.01 Acute respiratory failure with hypoxia; J12.89 Other viral pneumonia; E11.9 Type 2 diabetes mellitus without complications; E78.5 Hyperlipidemia, unspecified; I50.9 Heart failure, unspecified; J43.9 Emphysema, unspecified; I11.0 Hypertensive heart disease with heart failure; G40.909 Epilepsy, unspecified, not intractable, without status epilepticus; H91.90 Unspecified hearing loss, unspecified ear; I48.91 Unspecified atrial fibrillation; Z79.01 Long term (current) use of anticoagulants; Z88.6 Allergy status to analgesic agent
CPT/HCPCS: 36415; 36416; 36430; 51702; 71045; 71275; 80048; 80053; 81003; 81015; 82550; 82553; 82728; 82805; 83605; 83690; 83880; 84484; 85025; 85379; 86140; 86850; 86900; 86901; 87040; 87635; 87804; 93005; 93010; 94002; 94003; 94640; 96365; 96366; 96367; 96368; 96375; C9113; J0360; J0456; J0692; J1100; J1650; J1956; J2060; J2543; J2704; J2920; J3010; J3370; J3475; J3490; J7050; J7620; Q9967; U0003